=== PATIENT | female | born 1970 | race Asian ===

== ENCOUNTER 2020-09-14 22:37 | Emergency (ER) | payer OTHER ==
[~2020-09-14] VITALS: Ht 162.6 cm; Wt 86.2 kg
[2020-09-15 02:15] VITALS: BP 156/86; TEMP 98.3
== END 2020-09-15 02:15 | disposition home or self-care (01) ==
LOC: ED 22:37
DX: M25.562 Pain in left knee (principal); S80.02XA Contusion of left knee, initial encounter
CPT/HCPCS: 96372; 99283; J1885; J2550

== ENCOUNTER 2021-10-23 21:16 | Emergency (ER) | payer OTHER ==
[~2021-10-23] VITALS: Ht 162.6 cm; Wt 97.5 kg
[2021-10-23 21:58] LABS: PLATELET COUNT 302 K/uL (152-353)
[2021-10-23 22:07] LABS: POTASSIUM 3.5 mmol/L (3.6-5.2)
[2021-10-23 22:20] LABS: PARTIAL THROMBOPLASTIN TIME 26.4 SECONDS (24.5-33.6)
[2021-10-24 00:05] VITALS: BP 132/80; TEMP 98.1
== END 2021-10-24 00:05 | disposition home or self-care (01) ==
LOC: ED 21:16
PROVIDERS: Emergency Medicine
DX: B34.9 Viral infection, unspecified (principal); Z20.822 Contact with and (suspected) exposure to COVID-19; R79.89 Other specified abnormal findings of blood chemistry
CPT/HCPCS: 36415; 80053; 83880; 84484; 85027; 85379; 85610; 85730; 87635; 93005; 99283; Q9963; U0003